=== PATIENT | male | born 1995 | race Caucasian/White ===

== ENCOUNTER 2017-08-26 12:43 | Emergency (ER) | payer SELFPAY ==
[~2017-08-26] VITALS: Ht 190.5 cm; Wt 83.9 kg
--- NOTE | 2017-08-26 13:46 | ED Chest Pain ---
General Chief Complaint: Upper Extremity Stated Complaint: LEFT ARM PAIN,CHEST PRESSURE Nursing Triage Note: states woke up with left arm numbess. denies chest pain/pressure. denies neck pain Nursing Sepsis Screen: No Definite Risk Source: patient Exam Limitations: no limitations History of Present Illness Date Seen by Provider: Aug 26, 2017 Time Seen by Provider: 13:11 Initial Comments Here with report of left arm numbness when he woke up this morning and residual ache. He states it felt like his arm was asleep but is not completely waken up. He admits to drinking quite a bit last night. Denies injury or illness otherwise. No genetic family history of heart problems but his stepbrother did have a heart attack and 24 and that has got him out of the concerned. Denies nausea or vomiting. Denies sweating, weakness or breathing problems. Noted at 8 a.m. this morning when he woke up. Timing/Duration: 4-6 hours Severity/Quality: mild, moderate, aching Location: other (left upper arm and left lateral chest) Radiation: arms Activities at Onset: none Prior CP/Workup: no prior chest pain, no prior cardiac workup ASA po DRAWER LINER: No NTG SL DRAWER LINER: No Associated Symptoms: No abdominal pain, No back pain, No nausea/vomiting, No shortness of breath, No weakness Allergies and Home Medications Allergies Coded Allergies: Penicillins (Verified Allergy, Unknown, 08/26/17) amoxicillin (Verified Allergy, Unknown, 08/26/17) Patient Home Medication List Home Medication List Reviewed: Yes Review of Systems Constitutional: see HPI; No chills, No fever Respiratory: No Symptoms Reported; Denies Shortness of Air, Denies Wheezing Cardiovascular: See HPI; Denies Edema, Denies Irregular Heart Rate, Denies Lightheadedness Gastrointestinal: Denies Nausea, Denies Vomiting Genitourinary: No Symptoms Reported Musculoskeletal: see HPI, muscle pain; No muscle weakness Skin: no symptoms reported Psychiatric/Neurological: See HPI; Denies Headache; Numbness, Tingling All Other Systems Reviewed Negative Unless Noted: Yes Past Aknmkqp-Jdtany-Uhtnvo Hx Past Med/Social Hx: Reviewed Nursing Past Med/Soc Hx Patient Social History Alcohol Use: Occasionally Uses Alcohol Beverage of Choice: Vodka Recreational Drug Use: No Smoking Status: Never a Smoker Recent Foreign Travel: No Contact w/Someone Who Travel: No Recent Infectious Disease Expo: No Past Medical History Surgeries: No Respiratory: No Cardiac: No Neurological: No Genitourinary: No Gastrointestinal: No Musculoskeletal: No Endocrine: No HEENT: No Psychosocial: No Family Medical History Heart Disease Physical Exam Vital Signs Vital Signs - First Documented 08/26/17 12:52 Temp 98.0 Pulse 97 Resp 20 B/P (MAP) 140/109 (119) Pulse Ox 96 O2 Delivery Room Air Capillary Refill : Less Than 3 Seconds General Appearance: No Apparent Distress, WD/WN HEENT: PERRL/EOMI, Pharynx Normal Neck: Non Tender, Supple Respiratory: Lungs Clear, Normal Breath Sounds Cardiovascular: Regular Rate, Rhythm, No Murmur Gastrointestinal: Non Tender, Soft Extremity: Normal Capillary Refill, Normal Inspection, Normal Range of Motion, Non Tender, No Calf Tenderness, No Pedal Edema Neurologic/Psychiatric: Alert, Oriented x3, No Motor/Sensory Deficits, Normal Mood/Affect Skin: Normal Color, Warm/Dry Progress/Results/Core Measures Results/Orders Lab Results Laboratory Tests Test 08/26/17 13:28 Range/Units D-Dimer 0.35 0.00-0.49 UG/ML Troponin I < 0.30 <0.30 NG/ML My Orders Orders - CINTIA RIVERO MD Ekg Tracing (08/26/17 13:20) Chest Pa/Lat (2 View) (08/26/17 13:20) Fibrin Degradation Products (08/26/17 13:20) Troponin I (08/26/17 13:20) Vital Signs/I&O 08/26/17 12:52 Temp 98.0 Pulse 97 Resp 20 B/P (MAP) 140/109 (119) Pulse Ox 96 O2 Delivery Room Air Blood Pressure Mean: 119 Progress Progress Note : Progress Note Seen and evaluated. We will check EKG, chest x-ray and labs d-dimer and troponin. Monitor patient. 1415: No acute findings. IV related to partial palsy from sleeping on the arm. This was discussed with the patient. Discharged home with return precautions. Patient verbalize understanding instructions and agreement with plan. Initial ECG Impression Date: Aug 26, 2017 Initial ECG Impression Time: 13:19 Initial ECG Rate: 71 Initial ECG Rhythm: Normal Sinus Comment Sinus rhythm with normal axis. No evidence of ST elevation ME. Does have some appearance of sinus arrhythmia. No previous available for comparison. Interpreted by me. Diagnostic Imaging Diagonstic Imaging: Xray Plain Films/CT/US/NM/MRI: chest Comments VIA [facility]. [place], [place] NAME: TATIANA POPE [facility] REC#: [id number] PT STATUS: REG ER : 1995 PHYSICIAN: CINTIA RIVERO MD ADMIT DATE: 08/26/17/ER Draft Date of Exam:08/26/17 CHEST PA/LAT (2 VIEW) Patient History: Left upper arm pain/discomfort. Technique: Two views of the chest Comparison: None FINDINGS: The lung volumes are normal. No focal consolidation is seen. No large pleural effusion or pneumothorax is seen. The cardiomediastinal silhouette is normal in size and contour. No acute osseous abnormality is seen. IMPRESSION: No acute pulmonary abnormality seen. Dictated on workstation # [id number] Dict: 08/26/17 1358 Trans: 08/26/[address] [place] [address] [id number] Interpreted by: SILAS ADHIKARI MD Electronically signed by: Departure Impression Primary Impression: Left arm pain Additional Impression: Chest pain Qualified Codes: R07.9 - Chest pain, unspecified Disposition: 01 HOME, SELF-CARE Condition: Improved Departure-Patient Inst. Decision time for Depature: 14:21 Referrals: NO,LOCAL PHYSICIAN (PCP/Family) Primary Care Physician Patient Instructions: Chest Pain (DC), Muscle and Bone Pain (DC) Add. Discharge Instructions: All discharge instructions reviewed with patient and/or family. Voiced understanding. Follow up with your DrAkshat in a few days for recheck. You may follow-up with [facility]. You may take Tylenol/acetaminophen 1000 mg every 8 hours as needed for pain. You may take ibuprofen 800 mg every 8 hours as needed for pain. Return for worse pain, fever, vomiting, weakness, breathing problems or other concerns as needed. CINTIA RIVERO MD Aug 26, 2017 13:46
--- NOTE | 2017-08-26 14:00 | Diagnostic Imaging Report ---
Patient History: Left upper arm pain/discomfort. Technique: Two views of the chest Comparison: None FINDINGS: The lung volumes are normal. No focal consolidation is seen. No large pleural effusion or pneumothorax is seen. The cardiomediastinal silhouette is normal in size and contour. No acute osseous abnormality is seen. IMPRESSION: No acute pulmonary abnormality seen. Dictated by: Dictated on workstation # [id number]
[2017-08-26 14:31] VITALS: BP 163/72
== END 2017-08-26 14:30 | disposition home or self-care (01) ==
LOC: ER 12:46
DX: M79.602 Pain in left arm (principal); R07.9 Chest pain, unspecified; Z88.0 Allergy status to penicillin
CPT/HCPCS: 36415; 71046; 84484; 85379; 93005